=== PATIENT | female | born 1995 | race Caucasian/White ===

== ENCOUNTER → 2018-11-02 | Outpatient (CLI) | payer OTHER ==
[~2018-11-02] MED LIST: CATHETER FLUSH 10 ML SYR IVP PRN; GADOBUTROL 7.5 MMOL/7.5 ML (GADAVIST) VIAL IV ONE; IOHEXOL 300 MG/ML 30 ML (OMNIPAQUE 300) VIAL IV ONE; LIDOCAINE 1% INJ 20 ML 20 ML VIAL ONE
--- NOTE | 2018-11-02 13:32 | Diagnostic Imaging Report ---
MRI RT UPPER EXT WITH CON TECHNIQUE: Multiplanar, multisequence MR imaging of the right shoulder was performed with intra-articular contrast. COMPARISON: None available. INDICATION: Right shoulder pain and weakness. FINDINGS: Rotator cuff: No rotator cuff tear, tendinopathy, muscle atrophy, or strain. Glenoid labrum: The posterosuperior glenoid labrum has a small amount of contrast extending partially into its substance at the chondrolabral junction. The remainder of the glenoid labrum is normal in appearance. No paralabral cyst. Long head of biceps: Long head of biceps is normally positioned within the bicipital groove. The intracapsular segment is intact. Bones and cartilage: Humeral head is normal in morphology without fracture or focal osseous lesion. No glenohumeral chondromalacia. The acromioclavicular joint is normal in alignment without significant degenerative change. Soft tissues: No proliferative synovitis or loose bodies in the glenohumeral joint. No MRI findings to suggest adhesive capsulitis. No fluid or inflammatory like signal within the subacromial/subdeltoid space to indicate bursitis. IMPRESSION: 1. Slightly truncated posterosuperior labrum with potential focal intrasubstance tear. If the patient has continued symptoms of glenoid labral tear, arthroscopy may be warranted for confirmation or exclusion. 2. No rotator cuff tear. 3. Long head of biceps is normal. Dictated by: Dictated on workstation # [id number]
--- NOTE | 2018-11-02 19:17 | Diagnostic Imaging Report ---
INDICATION: Right shoulder pain. Patient was brought to the procedure room and placed on the table in the supine position. The skin of the right shoulder was prepped and draped in the usual sterile fashion. A small amount of 1% lidocaine was utilized for local anesthesia. A 21-gauge needle was advanced into the right shoulder at the rotator interval. A 15 mL solution of iodinated contrast, normal saline, and gadolinium was injected under fluoroscopic observation. The needle was withdrawn, and hemostasis was obtained. The patient tolerated the procedure well and was sent to MRI in satisfactory condition. Total of 30 seconds of fluoroscopy was utilized. IMPRESSION: Successful right shoulder injection of gadolinium contrast solution, using fluoroscopy. Dictated by: Dictated on workstation # [id number]
== END ==
LOC: RAD 09:27
PROVIDERS: ATTEND Orthopaedic Surgery
DX: S43.431A Superior glenoid labrum lesion of right shoulder, initial encounter (principal)
CPT/HCPCS: 23350; 73040; 73219